=== PATIENT | male | born 1965 | race African-American/Black ===

== ENCOUNTER 2024-11-27 00:05 | Emergency (ER) | payer OTHER, SELFPAY ==
[2024-11-27] VITALS (7 sets, daily range): BP systolic 135–157; BP diastolic 94–104; PULSE 77–89; RESP 18–20; TEMP 37.1; O2SAT 94–95; BMI 25.4
--- NOTE | 2024-11-27 03:08 | PC.NURSE ---
Pt states hx of asthma with increased symptoms over the last couple of weeks. States has been regularly using rescue inhaler but ran out earlier in the evening.
[2024-11-27] MEDS: ALBUTEROL 2.5 MG/3 ML NEB (ADULT) INH ×2 (03:18)
--- NOTE | 2024-11-27 03:18 | ED.SOB ---
HPI - SOB/Dyspnea General Chief Complaint: Shortness of Breath/Dyspnea Stated Complaint: SOB, Chest Tightness Time Seen by Provider: 11/27/24 03:10 Source: patient Mode of arrival: Ambulatory Limitations: no limitations History of Present Illness HPI Narrative: 59-year-old male with history of asthma, uses topical steroid inhaler in the past, ran out of his rescue albuterol inhaler, recent cough and increasing shortness of breath. No chest pain fevers or chills. No recent antibiotics. No close contacts to persons with acute respiratory illness. Related Data Home Medications ?Medication ?Instructions ?Recorded ?Confirmed albuterol sulfate 90 mcg/actuation 1 - 2 puff inhalation Q4H PRN 11/27/24 11/27/24 aerosol inhaler (Ventolin HFA) wheezing colchicine 0.6 mg tablet 0.6 mg PO DAILY PRN gout 11/27/24 11/27/24 oxybutynin chloride 5 mg 5 mg PO DAILY 11/27/24 11/27/24 tablet,extended release 24 hr quetiapine 300 mg tablet 300 mg PO BID 11/27/24 11/27/24 trazodone 300 mg tablet 600 mg PO ONCE PM PRN sleep 11/27/24 11/27/24 Previous Rx's ?Medication ?Instructions ?Recorded albuterol sulfate 90 mcg/actuation 2 puff inhalation Q6H PRN 11/27/24 aerosol inhaler shortness of breath or wheezing #8.5 grams prednisone 20 mg tablet 40 mg (2 x 20 mg) PO DAILY 5 days 11/27/24 #10 tabs Allergies Allergy/AdvReac Type Severity Reaction Status Date / Time No Known Drug Allergies Allergy Verified 11/27/24 00:46 Patient History Social History Smoking Status: Never smoker Smoking Status: Never smoker Exam Narrative Exam Narrative: GENERAL: Well-developed patient, in mild distress. HEAD: Atraumatic. Normocephalic. EYES: Pupils equal round and reactive. Extraocular motions intact. No scleral icterus. No injection or drainage. ENT: Nose without bleeding, purulent drainage. Throat without erythema, tonsillar hypertrophy or exudate. Airway patent. NECK: Trachea midline. Non tender CARDIOVASCULAR: Regular rate and rhythm without murmurs, gallops, or rubs. RESPIRATORY: Clear to auscultation. Breath sounds equal bilaterally. No wheezes, rales, or rhonchi. GASTROINTESTINAL: Abdomen soft, non-tender, nondistended. EXTREMITIES: No edema or joint tenderness. BACK: Nontender without deformity or crepitance. No flank tenderness. NEURO: AOx3. Motor functions grossly nonfocal. SKIN: No rash or erythema of visible areas Initial Vital Signs Initial Vital Signs: Vital Signs Temperature 98.7 F 11/27/24 00:49 Pulse Rate 86 11/27/24 00:49 Respiratory Rate 19 11/27/24 00:49 Blood Pressure 138/94 H 11/27/24 00:49 Pulse Oximetry 94 11/27/24 00:49 Oxygen Delivery Method Room Air 11/27/24 00:49 Course Orders Ordered: Discontinued Medications Albuterol (Albuterol 2.5 Mg/3 Ml Neb (Adult)) 2.5 mg INH NOW ONE Stop: 11/27/24 03:14 Last Admin: 11/27/24 03:18 Dose: 2.5 mg Documented By: DERECK Albuterol (Albuterol 2.5 Mg/3 Ml Neb (Adult)) 2.5 mg INH NOW ONE Stop: 11/27/24 03:14 Last Admin: 11/27/24 03:18 Dose: 2.5 mg Documented By: DERECK Albuterol (Albuterol Hfa Prepack) 1 box MISC DIRECTED ONE Stop: 11/27/24 03:21 Last Admin: 11/27/24 03:23 Dose: 1 box Documented By: JACI Prednisone (Prednisone 20 Mg Tablet) 60 mg PO NOW ONE Stop: 11/27/24 03:11 Last Admin: 11/27/24 03:14 Dose: 60 mg Documented By: JACI Vital Signs Vital signs: Vital Signs - 8 hr 11/27/24 00:49 11/27/24 03:05 11/27/24 03:06 Temperature 98.7 F Pulse Rate 86 89 89 Respiratory Rate 19 Blood Pressure 138/94 H Pulse Oximetry 94 95 94 Oxygen Delivery Method Room Air Oxygen Flow Rate Fraction of Inspired Oxygen 11/27/24 03:06 11/27/24 03:18 11/27/24 03:26 Temperature Pulse Rate 79 78 Respiratory Rate 20 Blood Pressure 150/100 H Pulse Oximetry 95 95 Oxygen Delivery Method Room Air Oxygen Flow Rate 0 Fraction of Inspired Oxygen 21 11/27/24 03:26 11/27/24 03:30 11/27/24 03:30 Temperature Pulse Rate 77 Respiratory Rate 18 Blood Pressure 151/97 H 157/104 H Pulse Oximetry 94 Oxygen Delivery Method Room Air Oxygen Flow Rate Fraction of Inspired Oxygen 11/27/24 04:00 11/27/24 04:00 Temperature Pulse Rate 84 Respiratory Rate 18 Blood Pressure 135/99 H Pulse Oximetry 95 Oxygen Delivery Method Room Air Oxygen Flow Rate Fraction of Inspired Oxygen MDM - SOB/Dyspnea MDM Narrative Medical decision making narrative: 59-year-old male with history of asthma, ran out of rescue inhaler, with cough and increasing shortness of breath. Some wheeze initially, breathing treatment given by respiratory therapy, on my 1st encounter post treatment I did not hear any wheeze, with good air movement, lungs clear, speaking in full sentences. Oral prednisone given prior. We will send prednisone pulse for 5 day course to his pharmacy. Refill of albuterol inhaler with spacer. Discharged home with family. Follow up with PCP advised. Return precautions discussed. Discharge Plan Departure Patient Disposition: Home Clinical Impression: Asthma exacerbation Activity Restrictions/Additional Instructions: History of asthma, ran out of rescue inhaler, increasing shortness of breath. Some wheeze on examination. Nebulized albuterol given. Oral prednisone steroid given. Fell of albuterol inhaler with spacer, with advice to use 2 puffs 4 times daily for this next week and then as needed. Further prednisone to take for the next 5 days sent as prescription to your pharmacy. Recheck symptoms with your regular doctor later this week. Return earlier to this/nearest emergency department for any change worsening symptoms or any concerns prior. Prescriptions: New prednisone 20 mg tablet 40 mg PO DAILY 5 Days Qty: 10 0RF albuterol sulfate 90 mcg/actuation HFA aerosol inhaler 2 puff inhalation Q6H PRN (Reason: shortness of breath or wheezing) Qty: 8.5 0RF No Action trazodone 300 mg tablet 600 mg PO ONCE PM PRN (Reason: sleep) quetiapine 300 mg tablet 300 mg PO BID oxybutynin chloride 5 mg tablet extended release 24hr 5 mg PO DAILY colchicine 0.6 mg tablet 0.6 mg PO DAILY PRN (Reason: gout) albuterol sulfate [Ventolin HFA] 90 mcg/actuation HFA aerosol inhaler 1 - 2 puff INHALATION Q4H PRN (Reason: wheezing) Stand Alone Forms: Patient Portal/API
[2024-11-27] MEDS: ALBUTEROL HFA PREPACK 1 BOX MISC (03:23)
== END 2024-11-27 04:56 | disposition home or self-care (01) ==
PROVIDERS: Emergency Provider Emergency Medicine
DX: J45.901 Unspecified asthma with (acute) exacerbation (principal)
CPT/HCPCS: 99283; J7613